=== PATIENT | male | born 1960 | race Caucasian/White ===

== ENCOUNTER 2019-01-21 11:30 | Outpatient (CLI) | payer MEDICAID, SELFPAY ==
[2019-01-21 14:19] LABS: GGT 63 U/L (15-85)
[2019-01-21 18:50] LABS: Hemoglobin A1C 5.2 % (4.5-6.2)
[2019-01-24 11:05] LABS: PSA, Screening 3.3 ng/ml (0-3.5)
== END 2019-01-21 11:50 ==
PROVIDERS: PCP Emergency Medicine; Visit Provider Emergency Medicine
DX: E11.9 Type 2 diabetes mellitus without complications (principal); Z12.5 Encounter for screening for malignant neoplasm of prostate; Z78.9 Other specified health status
CPT/HCPCS: 36415; 84153; 82977; 83036

== ENCOUNTER 2020-07-11 13:21 | Outpatient (REF) | payer MEDICAID, SELFPAY ==
[2020-07-12 02:17] LABS: Anion Gap 11.1 mmol/L (3-11); BUN 21 mg/dL (7-18); CO2 24.9 mmol/L (21.0-32.0); CREATININE 1.16 mg/dL (0.70-1.30); Calcium 9.4 mg/dL (8.5-10.1); Chloride 103 mmol/L (98-107); Glucose 98 mg/dL (74-106); Sodium 139 mmol/L (136-145)
== END 2020-07-11 13:41 ==
LOC: LBN 13:21
PROVIDERS: PCP Emergency Medicine; Visit Provider Emergency Medicine
DX: I10 Essential (primary) hypertension (principal)
CPT/HCPCS: 80048

== ENCOUNTER 2022-07-30 14:54 | Outpatient (REF) | payer MEDICAID, SELFPAY ==
[2022-07-30 21:01] LABS: ALT 59 U/L (16-63); AST 22 U/L (15-37); Albumin 4.2 g/dL (3.4-5.0); Alkaline Phosphatase 70 U/L (46-116); BUN 22 mg/dL (7-18); Bilirubin, Total 0.6 mg/dL (0.2-1.0); CREATININE 1.2 mg/dL (0.70-1.30); Calcium 9.4 mg/dL (8.5-10.1); Calculated LDL 113 mg/dL (<100); Chloride 105 mmol/L (98-107); Cholesterol 206 mg/dL (<200); Glucose 95 mg/dL (74-106); HDL Cholesterol 46 mg/dL (40-60); Potassium 3.7 mmol/L (3.5-5.1); Sodium 141 mmol/L (136-145); Total Protein 7.4 g/dL (6.4-8.2); Triglyceride 239 mg/dL (<150)
[2022-07-31 20:35] LABS: PSA, Screening 9.1 ng/mL (<=4.5)
== END 2022-07-30 14:55 | disposition home or self-care (01) ==
LOC: LBN 14:54
PROVIDERS: Emergency Medicine
DX: Z12.5 Encounter for screening for malignant neoplasm of prostate (principal); Z13.220 Encounter for screening for lipoid disorders; I10 Essential (primary) hypertension
CPT/HCPCS: 80053; 80061; 84153

== ENCOUNTER 2022-11-26 17:11 | Outpatient (REF) | payer MEDICAID, SELFPAY ==
[2022-11-27 18:25] LABS: PSA, Screening 8.1 ng/mL (<=4.5)
== END 2022-11-26 17:12 | disposition home or self-care (01) ==
LOC: LBN 17:11
PROVIDERS: PCP Nurse Practitioner Family; Visit Provider Nurse Practitioner Gerontology
DX: Z80.42 Family history of malignant neoplasm of prostate (principal); Z12.5 Encounter for screening for malignant neoplasm of prostate
CPT/HCPCS: 84153

== ENCOUNTER 2023-09-02 03:45 | Outpatient (CLI) | payer MEDICAID, SELFPAY ==
[2023-09-02 16:41] LABS: ALT 49 U/L (16-63); AST 19 U/L (15-37); Albumin 4.3 g/dL (3.4-5.0); Alkaline Phosphatase 69 U/L (46-116); Anion Gap 10.6 mmol/L (3-11); BUN 23 mg/dL (7-18); Bilirubin, Total 0.6 mg/dL (0.2-1.0); CO2 26.4 mmol/L (21.0-32.0); CREATININE 1.2 mg/dL (0.70-1.30); Calcium 9.3 mg/dL (8.5-10.1); Calculated LDL 44 mg/dL (<100); Chloride 108 mmol/L (98-107); Cholesterol 119 mg/dL (<200); Estimated GFR 68.38 (mL/min/1.73m2); Glucose 99 mg/dL (74-106); HDL Cholesterol 51 mg/dL (40-60); Potassium 4.2 mmol/L (3.5-5.1); Sodium 145 mmol/L (136-145); Total Protein 7.1 g/dL (6.4-8.2); Triglyceride 120 mg/dL (<150)
== END 2023-09-02 03:46 | disposition home or self-care (01) ==
LOC: LBO 03:46
PROVIDERS: Nurse Practitioner Gerontology; PCP Nurse Practitioner Family; Visit Provider Nurse Practitioner Family
DX: E78.5 Hyperlipidemia, unspecified (principal); R97.20 Elevated prostate specific antigen [PSA]
CPT/HCPCS: 36415; 80053; 80061; 84153

== ENCOUNTER 2025-02-07 21:57 | Outpatient (REF) | payer MEDICAID, SELFPAY ==
[2025-02-07 22:59] LABS: ALT 40 U/L (16-63); AST 16 U/L (15-37); Albumin 4.2 g/dL (3.4-5.0); Alkaline Phosphatase 73 U/L (46-116); Anion Gap 10.4 mmol/L (3-11); BUN 16 mg/dL (7-18); Bilirubin, Total 0.7 mg/dL (0.2-1.0); CO2 26.6 mmol/L (21.0-32.0); Calcium 9.8 mg/dL (8.5-10.1); Calculated LDL 61 mg/dL (<100); Chloride 107 mmol/L (98-107); Cholesterol 158 mg/dL (<200); Estimated GFR 84.05 (mL/min/1.73m2); Glucose 94 mg/dL (74-106); HDL Cholesterol 62 mg/dL (>or=40); Potassium 4.2 mmol/L (3.5-5.1); Sodium 144 mmol/L (136-145); Total Protein 7.4 g/dL (6.4-8.2); Triglyceride 176 mg/dL (<150)
[2025-02-08 18:54] LABS: PSA, Screening 6.8 ng/mL (<=4.5)
[2025-02-09 09:57] LABS: HIV-1/2 Ag & Ab Screen Negative (Negative)
[2025-02-09 10:34] LABS: Hepatitis C Ab w Rflx HCV PCR Negative (Negative)
== END 2025-02-07 21:58 | disposition home or self-care (01) ==
LOC: LBN 21:57
PROVIDERS: PCP Nurse Practitioner Family; Visit Provider Nurse Practitioner Family
DX: R97.20 Elevated prostate specific antigen [PSA] (principal); E78.5 Hyperlipidemia, unspecified; Z11.59 Encounter for screening for other viral diseases; Z78.9 Other specified health status; Z11.4 Encounter for screening for human immunodeficiency virus [HIV]
CPT/HCPCS: 80053; 80061; 84153; 86803; 87389